=== PATIENT | female | born 1990 | race African-American/Black ===

== ENCOUNTER 2016-06-29 03:52 | Emergency (ER) | payer OTHER ==
[~2016-06-29] VITALS: Ht 165.1 cm; Wt 49.9 kg
[~2016-06-29 03:52] MED LIST: AMOX500C2 PO; AZIT500T PO; AZTH250C PO; BUTA1CAP39 PO; CEPH-38 PO; Depo Provera; FEXO-45 PO; GUAI120S36 PO; HYDR-2890 PO; HYDR-700 PO; HYDR-757 PO; METR500T PO; NAPR-243 PO; NITR-65 PO; ONDAN4ODT PO; [UNRECOGNIZED DRUG - CODE] VG
[2016-06-29] MEDS ORDERED: KETOROLAC 30 MG/ML VIAL ONE (03:54)
[2016-06-29] MEDS ORDERED: KETOROLAC 15 MG/ML VIAL IM ONE (04:00)
[2016-06-29] MEDS ORDERED: PENI500T PO (04:05)
[2016-06-29] MEDS ORDERED: TRAM-42 PO (04:05)
--- NOTE | 2016-06-29 04:05 | ED EENT ---
History of Present Illness General Chief Complaint: Dental Problems/Pain Stated Complaint: WISDOM TEETH PAIN History of Present Illness Time seen by provider: 03:58 Initial Comments 25-year-old female who presents with right lower wisdom tooth pain. States his been gone for about a week. States that her ibuprofen and Tylenol aren't helping anymore. She has not followed up with a dentist for this. Allergies and Home Medications Allergies Coded Allergies: No Known Drug Allergies (Unverified , 12/12/09) Home Medications Amoxicillin 500 Mg Capsule #21 500 MG PO TID Prescribed by: LUL CARR on 05/21/16 1440 Hydrocodone/Acetaminophen 1 Each Tablet #10 1 EACH PO Q4H PRN PRN PAIN Prescribed by: LUL CARR on 05/21/16 1440 Review of Systems Constitutional: No chills, No fever Ears: No Symptoms Reported Nose: no symptoms reported Mouth: see HPI Throat: no symptoms reported Respiratory: no symptoms reported Cardiovascular: no symptoms reported Past Qfvizfd-Zmzrmx-Whlzhs Hx Patient Social History Alcohol Use: Occasionally Uses Recreational Drug Use: No Smoking Status: Current Everyday Smoker Type Used: Cigarettes Recent Foreign Travel: No Contact w/Someone Who Travel: No Recent Hopitalizations: No Physical Abuse Screen: No Sexual Abuse: No Surgeries HX Surgeries: No Respiratory Hx Respiratory Disorders: No Cardiovascular Hx Cardiac Disorders: No Neurological Hx Neurological Disorders: No Reproductive System Hx Reproductive Disorders: No Sexually Transmitted Disease: No HIV/AIDS: No Genitourinary Hx Genitourinary Disorders: No Gastrointestinal Hx Gastrointestinal Disorders: No Musculoskeletal Hx Musculoskeletal Disorders: No Endocrine Hx Endocrine Disorders: No HEENT HX ENT Disorders: No Cancer Hx Cancer: No Psychosocial Hx Psychiatric Problems: No Integumentary HX Skin/Integumentary Disorder: No Blood Transfusions Hx Blood Disorders: Yes (ANEMIA) Family Medical History Significant Family History: No Pertinent Family Hx Family Medial History: Patient reports no known family medical history. Physical Exam General Appearance: WD/WN no apparent distress Nose: normal inspection Mouth/Throat: dental tenderness (right lower wisdom tooth/molar - moderate cavity with mild gum swelling ) Neck: non-tender Cardiovascular: normal peripheral pulses regular rate, rhythm Respiratory: chest non-tender normal breath sounds no respiratory distress Neurologic/Psychiatric: alert oriented x 3 Skin: normal color warm/dry Progress/Results/Core Measures Results/Orders My Orders Orders-REDDY,VICTORINA L DO Ketorolac Injection (Toradol Injection) (06/29/16 04:00) Departure Impression Impression: Primary Impression: Dental caries Additional Impression: Pain due to dental caries Disposition: HOME, SELF-CARE Condition: Stable Departure-Patient Inst. Referrals: NO,LOCAL PHYSICIAN (PCP/Family) Primary Care Physician Patient Instructions: Dental Pain (DC), Tooth Abscess (DC) Scripts Penicillin V Potassium 500 Mg [id number] Mg PO Q6H 7 Days Prov:VICTORINA REDDY DO 06/29/16 Tramadol HCl (Ultram)50 Mg [id number] Mg PO Q6H PRN PAIN #5 TAB Prov:VICTORINA REDDY DO 06/29/16 VICTORINA REDDY DO Jun 29, 2016 04:05
[2016-06-29 04:19] VITALS: BP 114/90
== END 2016-06-29 04:19 | disposition home or self-care (01) ==
LOC: EDUNIT# 03:52 → ER 03:54
DX: K02.9 Dental caries, unspecified (principal); F17.210 Nicotine dependence, cigarettes, uncomplicated
CPT/HCPCS: 96372; 99283

== ENCOUNTER 2016-07-13 08:25 | Emergency (ER) | payer OTHER ==
[~2016-07-13] VITALS: Ht 165.1 cm; Wt 49.9 kg
[~2016-07-13 08:25] MED LIST changes: +PENI500T PO; +TRAM-42 PO
[2016-07-13] MEDS ORDERED: IBUPROFEN TABLET 200 MG TAB PO ONE (09:45)
[2016-07-13] MEDS ORDERED: NS IV 1000 ML 1,000 ML IV SCH (10:45)
--- NOTE | 2016-07-13 10:57 | ED Cough/URI ---
General Chief Complaint: Fever-Adult/Adol Stated Complaint: FEVER BODYACHES Nursing Triage Note: complaint of fever sore throat last night. Weakness, nausea, No medication taken. Source: patient Exam Limitations: no limitations History of Present Illness Time seen by provider: 10:56 Initial Comments To ER with 24-36 hour history of fever up to 103, sore throat, weakness, nausea. Also has some left lower abdominal pain. Denies dysuria. Timing/Duration: yesterday Severity/Quality: productive cough Associated Symptoms: cough, sore throat Allergies and Home Medications Allergies Coded Allergies: No Known Drug Allergies (Unverified , 12/12/09) Constitutional: see HPI fever malaise EENTM: see HPI Respiratory: no symptoms reported Cardiovascular: no symptoms reported Gastrointestinal: abdominal pain Genitourinary: no symptoms reported Musculoskeletal: no symptoms reported Skin: no symptoms reported Psychiatric/Neurological: No Symptoms Reported Hematologic/Lymphatic: No Symptoms Reported Immunological/Allergic: no symptoms reported Past Nguisiy-Klecjr-Qyietr Hx Patient Social History Type Used: Cigarettes Recent Foreign Travel: No Contact w/Someone Who Travel: No Recent Infectious Disease Expo: No Recent Hopitalizations: No Surgeries HX Surgeries: No Respiratory Hx Respiratory Disorders: No Cardiovascular Hx Cardiac Disorders: No Neurological Hx Neurological Disorders: No Reproductive System Hx Reproductive Disorders: No Sexually Transmitted Disease: No HIV/AIDS: No Genitourinary Hx Genitourinary Disorders: No Gastrointestinal Hx Gastrointestinal Disorders: No Musculoskeletal Hx Musculoskeletal Disorders: No Endocrine Hx Endocrine Disorders: No HEENT HX ENT Disorders: No Cancer Hx Cancer: No Psychosocial Hx Psychiatric Problems: No Integumentary HX Skin/Integumentary Disorder: No Blood Transfusions Hx Blood Disorders: Yes (ANEMIA) Family Medical History Significant Family History: No Pertinent Family Hx Family Medial History: Patient reports no known family medical history. Physical Exam Vital Signs Vital Sign - Last 12Hours 07/13/16 08:46 Temp 101.5 Pulse 124 Resp 20 B/P 107/62 Pulse Ox 99 O2 Delivery Room Air Capillary Refill : Less Than 3 Seconds General Appearance: WD/WN no apparent distress Eyes: Bilateral Eye EOMI, Bilateral Eye Normal Inspection, Bilateral Eye PERRL HEENT: PERRL/EOMI normal ENT inspection TMs normal pharyngeal erythema Neck: non-tender Respiratory: normal breath sounds no respiratory distress no accessory muscle use Cardiovascular: regular rate, rhythm no murmur Gastrointestinal: normal bowel sounds non tender soft Extremities: normal range of motion non-tender Neurologic/Psychiatric: alert normal mood/affect Skin: warm/dry Progress/Results/Core Measures Results/Orders Lab Results Laboratory Tests Test 07/13/16 10:08 07/13/16 10:51 07/13/16 11:13 07/13/16 11:50 Range/Units Monoscreen NEGATIVE NEGATIVE Alanine Aminotransferase (ALT/SGPT) 10 0-55 U/L Albumin 4.2 3.2-4.5 G/DL Alkaline Phosphatase 51 40-136 U/L Anion Gap 9 5-14 MMOL/L Anisocytosis SLIGHT Aspartate Amino Transf (AST/SGOT) 15 5-34 U/L BUN/Creatinine Ratio 15 Band Neutrophils 0 % Basophils # (Auto) 0.0 0.0-0.1 10^3/uL Basophils % (Manual) 0 % Basophils (%) (Auto) 0 0-10 % Blood Urea Nitrogen 10 7-18 MG/DL Calcium Level 8.9 8.5-10.1 MG/DL Carbon Dioxide Level 24 21-32 MMOL/L Chloride Level 103 98-107 MMOL/L Creatinine 0.65 0.60-1.30 MG/DL Eosinophils # (Auto) 0.0 0.0-0.3 10^3/uL Eosinophils % (Manual) 0 % Eosinophils (%) (Auto) 0 0-10 % Estimat Glomerular Filtration Rate > 60 Glucose Level 95 70-105 MG/DL Hematocrit 30 L 35-52 % Hemoglobin 9.1 L 11.5-16.0 G/DL Hypochromasia MODERATE Lymphocytes # (Auto) 0.5 L 1.0-4.0 X 10^3 Lymphocytes % (Manual) 4 % Lymphocytes (%) (Auto) 4 L 12-44 % Macrocytosis SLIGHT Mean Corpuscular Hemoglobin 24 L 25-34 PG Mean Corpuscular Hemoglobin Concent 31 L 32-36 G/DL Mean Corpuscular Volume 79 L 80-99 FL Mean Platelet Volume 9.4 7.4-10.4 FL Microcytosis SLIGHT Monocytes # (Auto) 0.8 0.0-1.0 X 10^3 Monocytes % (Manual) 1 % Monocytes (%) (Auto) 6 0-12 % Neutrophils # (Auto) 11.7 H 1.8-7.8 X 10^3 Neutrophils % (Manual) 95 % Neutrophils (%) (Auto) 90 H 42-75 % Platelet Count 349 130-400 10^3/uL Poikilocytosis SLIGHT Potassium Level 3.3 L 3.6-5.0 MMOL/L Red Blood Count 3.78 L 4.35-5.85 10^6/uL Red Cell Distribution Width 17.5 H 10.0-14.5 % Sodium Level 136 135-145 MMOL/L Spherocytes SLIGHT Total Bilirubin 1.1 H 0.1-1.0 MG/DL Total Protein 7.6 6.4-8.2 G/DL White Blood Count 13.1 H 4.3-11.0 10^3/uL Group A Streptococcus Screen NEGATIVE NEGATIVE Urine Bacteria NEGATIVE /HPF Urine Bilirubin NEGATIVE NEGATIVE Urine Casts NONE /LPF Urine Clarity CLEAR Urine Color YELLOW Urine Crystals NONE /LPF Urine Culture Indicated NO Urine Glucose (UA) NEGATIVE NEGATIVE Urine Ketones 1+ H NEGATIVE Urine Leukocyte Esterase 1+ H NEGATIVE Urine Mucus LARGE H /LPF Urine Nitrite NEGATIVE NEGATIVE Urine Protein NEGATIVE NEGATIVE Urine RBC NONE /HPF Urine RBC (Auto) NEGATIVE NEGATIVE Urine Specific [place] 1.010 L 1.016-1.022 Urine Squamous Epithelial Cells TNTC H /HPF Urine Urobilinogen NORMAL NORMAL MG/DL Urine WBC 2-5 /HPF Urine pH 6 5-9 Micro Results Microbiology 07/13/16 Influenza Types A,B Antigen (GAYATHRI) - Final, Complete My Orders Orders-LUL CARR APRN Ua Culture If Indicated (07/13/16 10:34) Urine Bedside (07/13/16 10:34) Cbc With Automated Diff (07/13/16 10:34) Comprehensive Metabolic Panel (07/13/16 10:34) Ns Iv 1000 Ml (Sodium Chloride 0.9%) (07/13/16 10:45) Manual Differential (07/13/16 10:51) Monotest (07/13/16 11:13) Rapid Strep A Screen (07/13/16 11:13) Medications Given in ED Current Medications Medications Dose Ordered Sig/[place] Route Start Time Stop Time Status Last Admin Dose Admin Ibuprofen 600 mg ONCE ONCE PO 07/13/16 09:45 07/13/16 09:46 DC 07/13/16 09:42 600 MG Vital Signs/I&O Vital Sign - Last 12Hours 07/13/16 07/13/16 07/13/16 08:46 09:32 10:51 Temp 101.5 101.3 101.0 Pulse 124 Resp 20 B/P 107/62 Pulse Ox 99 O2 Delivery Room Air Blood Pressure Mean: 77 Departure Impression Impression: Primary Impression: Influenza-like symptoms Disposition: 01 HOME, SELF-CARE Condition: Stable Departure-Patient Inst. Decision time for Depature: 12:29 Referrals: NO,LOCAL PHYSICIAN (PCP/Family) Primary Care Physician Patient Instructions: VIRAL SYNDROME Add. Discharge Instructions: 1. Return to ER for any worsening 2. Follow up with your doctor next week 3. tylenol and motrin for any fevers 4. All discharge instructions reviewed with patient and/or family. Voiced understanding. Work/School Note: Work Release Form Date Seen in the Emergency Department: Jul 13, 2016 Return to Work: Jul 16, 2016 LUL CARR APRN Jul 13, 2016 10:57 LUL CARR APRN Jul 13, 2016 10:57
[2016-07-13 11:01] LABS: BASOPHILS % (AUTO) 0 % (0-10); EOSINOPHILS % (AUTO) 0 % (0-10); LYMPHOCYTES # (AUTO) 0.5 X 10^3 (1.0-4.0); LYMPHOCYTES % (AUTO) 4 % (12-44); MEAN CORPUSCULAR HEMOGLOBIN 24 PG (25-34); MEAN CORPUSCULAR HGB CONC 31 G/DL (32-36); MEAN CORPUSCULAR VOLUME 79 FL (80-99); MEAN PLATELET VOLUME 9.4 FL (7.4-10.4); MONOCYTES # (AUTO) 0.8 X 10^3 (0.0-1.0); MONOCYTES % (AUTO) 6 % (0-12); NEUTROPHILS # (AUTO) 11.7 X 10^3 (1.8-7.8); NEUTROPHILS % (AUTO) 90 % (42-75); PLATELET COUNT 349 10^3/uL (130-400); RED BLOOD COUNT 3.78 10^6/uL (4.35-5.85); RED CELL DISTRIBUTION WIDTH 17.5 % (10.0-14.5); WHITE BLOOD COUNT 13.1 10^3/uL (4.3-11.0)
[2016-07-13 11:20] LABS: ALANINE AMINOTRANSFERASE 10 U/L (0-55); ALBUMIN 4.2 G/DL (3.2-4.5); ANION GAP 9 MMOL/L (5-14); ASPARTATE AMINO TRANSFERASE 15 U/L (5-34); BILIRUBIN,TOTAL 1.1 MG/DL (0.1-1.0); BLOOD UREA NITROGEN 10 MG/DL (7-18); BUN/CREATININE RATIO 15; CALCIUM 8.9 MG/DL (8.5-10.1); CARBON DIOXIDE 24 MMOL/L (21-32); CHLORIDE 103 MMOL/L (98-107); CREATININE SERUM 0.65 MG/DL (0.60-1.30); GFR ESTIMATED > 60; GLUCOSE 95 MG/DL (70-105); POTASSIUM 3.3 MMOL/L (3.6-5.0); SODIUM 136 MMOL/L (135-145); TOTAL PROTEIN 7.6 G/DL (6.4-8.2)
[2016-07-13 11:41] LABS: BAND NEUTROPHILS 0 %; BASOPHILS % (MANUAL) 0 %; EOSINOPHILS % (MANUAL) 0 %; LYMPHOCYTES % (MANUAL) 4 %; NEUTROPHILS % (MANUAL) 95 %
[2016-07-13 11:42] LABS: ANISOCYTOSIS SLIGHT; HYPOCHROMASIA MODERATE; MICROCYTOSIS SLIGHT; POIKILOCYTOSIS SLIGHT; SPHEROCYTES SLIGHT
[2016-07-13 12:13] LABS: BILIRUBIN,URINE NEGATIVE (NEGATIVE); KETONES,URINE 1+ (NEGATIVE); LEUKOCYTE ESTERASE ,URINE 1+ (NEGATIVE); NITRITE,URINE NEGATIVE (NEGATIVE); PH,URINE 6 (5-9); PROTEIN,URINE NEGATIVE (NEGATIVE); UROBILINOGEN,URINE NORMAL (NORMAL)
[2016-07-13 12:25] LABS: SQUAMOUS EPITHELIAL CELL,UR TNTC /HPF
[2016-07-13 12:40] VITALS: BP 121/67
== END 2016-07-13 12:40 | disposition home or self-care (01) ==
LOC: EDUNIT# 08:25 → ER 08:28
DX: J11.1 Influenza due to unidentified influenza virus with other respiratory manifestations (principal)
CPT/HCPCS: 36415; 80053; 81000; 84703; 85007; 85027; 86308; 87430; 87804; 96360